=== PATIENT | female | born 1985 | race Caucasian/White ===

== ENCOUNTER 2017-04-05 21:59 | Inpatient (IN) | payer OTHER ==
[2017-04-05] MEDS ORDERED: METHYLERGONOVINE 0.2 MG/ML 1 ML AMP IM PRN (22:12)
[2017-04-05] MEDS ORDERED: OXYTOCIN 10 UNIT/ML 1 ML VIAL IM PRN (22:12)
[2017-04-05] MEDS ORDERED: PENICILLIN G POTASSIUM (BULK) 5,000,000 UNIT in DEXTROSE 5% IN WATER 100 ML IV STA ×2 (22:12)
[2017-04-05] MEDS ORDERED: LIDOCAINE 1% (PF) 10 MG/ML (30 ML SDV) SQ PRN (22:12)
[2017-04-05] MEDS ORDERED: TERBUTALINE 1 MG/ML VIAL SQ PRN (22:12)
[2017-04-05] MEDS ORDERED: CARBOPROST TROMETHAMINE 250 MCG/ML 1 ML AMP IM PRN (22:12)
[2017-04-05] MEDS: LACTATED RINGERS 1,000 ML IV SCH (22:24)
[2017-04-05 22:43] LABS: Basophils % (A) 0 %; CH 26.1; CHCM 34.1; Eosinophils # (A) 0.1 k/uL (0-0.7); Eosinophils % (A) 1 %; HCT 32.4 % (34.0-46.0); HDW 3.67; HGB 11.3 gm/dL (11.4-16.0); Luc # (Auto) 0.18; Luc % (Auto) 2; Lymphocytes # (A) 2.1 k/uL (1.0-4.8); Lymphocytes % (A) 25 %; MCH 26.8 pg (25.0-35.0); MCHC 34.9 g/dL (31.0-37.0); Mean Platelet Volume 9.5; Microcytosis Slight; Monocytes # (A) 0.4 k/uL (0-1.0); Monocytes % (A) 5 %; Neutrophils # (A) 5.7 k/uL (1.3-7.7); Neutrophils % (A) 67 %; Poikilocytosis Slight; RBC 4.21 m/uL (3.80-5.40); RDW 15.2 % (11.5-15.5); WBC 8.5 k/uL (3.8-10.6); WBC (Perox) 8.57
[2017-04-05 23:11] VITALS: RESP 16; BMI 31.3
[2017-04-05] MEDS ORDERED: fentaNYL (PF) 50 MCG/ML 5 ML AMP ONE (23:25)
[2017-04-05] MEDS ORDERED: BUPIVACAINE (PF) 0.25% 30 ML VIAL ONE (23:25)
[2017-04-05] MEDS ORDERED: SODIUM CHLORIDE 0.9% 100 ML BAG ONE (23:25)
[2017-04-06] MEDS: LACTATED RINGERS 1,000 ML IV SCH (00:10)
[2017-04-06] MEDS ORDERED: PENICILLIN G POTASSIUM (BULK) 2,500,000 UNIT in DEXTROSE 5% IN WATER 100 ML IV SCH ×2 (03:00)
--- NOTE | 2017-04-06 03:40 | P.HPOB ---
History of Present Illness H&P Date: 04/06/17 Chief Complaint: Strong regular uterine contractions This is a 32-year-old white female 5 para 20-2 EDC 04/11/2017 at 39 weeks gestation. Patient presented with strong regular uterine contractions. Fetus has been active throughout the . She denied fluid leakage or vaginal bleeding. Past medical history is significant for ovarian cysts. Past surgical history colposcopy and voluntary termination of 2 Current medications vitamins daily. ALLERGIES none known. Family history significant for celiac disease, emphysema, type 1 diabetes, hypertension, hypothyroidism, leukemia, lung cancer and rheumatoid arthritis. Social history patient is single, she denies alcohol drug use or tobacco smoking.. Past obstetric history blood type is B+, rubella status immune. Group B strep cultures positive. Hepatitis B surface antigen, HIV testing, VDRL testing, urine culture, Pap smear all negative. One-hour Glucola 142, 3 hour GTT within normal limits. On exam this is a pleasant white female, 5 foot 3 inches, 177 pounds, initial blood pressure 138/85. Vital signs are stable and patient is otherwise afebrile. The general physical exam is within normal limits. Cervix was 4 cm dilated on admission, vertex presentation, 90% effaced, -2 station. heart tones consistent with reactive NST. Impression: 39 week intrauterine , active spontaneous labor, positive B strep cultures. Plan: Penicillin G prophylaxis will be instituted now. Epidural may be placed at patient's wishes. Close maternal and surveillance. Anticipate normal spontaneous vaginal delivery. Review of Systems Negative except as in HPI Past Medical History Past Medical History: No Reported History History of Any Multi-Drug Resistant Organisms: None Reported Additional Past Surgical History / Comment(s): colposcopy 2008 VTOP 2004, 2005 Past Anesthesia/Blood Transfusion Reactions: No Reported Reaction Past Psychological History: No Psychological Hx Reported Smoking Status: Former smoker Past Alcohol Use History: Occasional Past Drug Use History: None Reported - Past Family History Mother Family Medical History: Rheumatoid Arthritis (RA), Thyroid Disorder Additional Family Medical History / Comment(s): celiac-mother hypertension- father type1 diabetes-sister Medications and Allergies Home Medications Medication Instructions Recorded Confirmed Type Pnv,Calcium 72/Iron/Folic Acid 1 tab PO DAILY 03/23/17 04/05/17 History [ Plus Tablet] Allergies Allergy/AdvReac Type Severity Reaction Status Date / Time No Known Allergies Allergy Verified 03/23/17 09:46 Exam - Vital Signs Vital signs: Vital Signs Temp Pulse Resp BP Pulse Ox 04/05/17 22:10 98.4 F 71 16 138/85 98 Intake and Output 04/05/17 04/05/17 04/06/17 14:59 22:59 06:59 Other: Weight 80.286 kg Patient Weight 04/06/17 06:59 Weight 80.286 kg See dictation please under HPI Results Result Diagrams: 04/05/17 22:22 Abnormal Lab Results - Last 24 Hours (Table) 04/05/17 Range/Units 22:22 Hgb 11.3 L (11.4-16.0) gm/dL Hct 32.4 L (34.0-46.0) % MCV 77.0 L (80.0-100.0) fL Assessment and Plan Plan: Penicillin G per hospital protocol. Close maternal and surveillance. Anticipate normal spontaneous vaginal delivery. Time with Patient: Less than 30
[2017-04-06] MEDS ORDERED: LANOLIN CREAM 5 GM TUBE TOPICAL PRN (03:42)
[2017-04-06] MEDS ORDERED: SIMETHICONE 80 MG CHEWABLE PO PRN (03:42)
[2017-04-06] MEDS ORDERED: IBUPROFEN 600 MG TAB PO PRN (03:42)
[2017-04-06] MEDS ORDERED: HYDROCORTISONE 2.5% RECTAL CREAM 30 GM TUBE RECTAL PRN (03:42)
[2017-04-06] MEDS ORDERED: diphenhydrAMINE 50 MG/ML 1 ML VIAL IVP PRN ×2 (03:42)
[2017-04-06] MEDS ORDERED: BENZOCAINE/MENTHOL SPRAY 1 GM/SPRAY AEROSOL TOPICAL PRN (03:42)
[2017-04-06] MEDS ORDERED: diphenhydrAMINE 25 MG CAP PO PRN (03:42)
[2017-04-06] MEDS ORDERED: ZOLPIDEM 5 MG TAB PO PRN (03:42)
[2017-04-06] MEDS ORDERED: diphenhydrAMINE ELIXIR 25 MG/10 ML CUP PO PRN (03:42)
[2017-04-06] MEDS ORDERED: ACETAMINOPHEN TAB 325 MG TAB PO PRN (03:42)
[2017-04-06] MEDS ORDERED: WITCH HAZEL 1 EACH MED..PAD TOPICAL PRN (03:42)
[2017-04-06] MEDS ORDERED: diphenhydrAMINE 50 MG CAP PO PRN (03:42)
--- NOTE | 2017-04-06 03:42 | P.PROBDLV ---
Vaginal Delivery Note - . Vaginal Delivery Note: This is a 32-year-old white female 5 para 20-2 EDC 04/11/2017 at 39 weeks gestation. Patient presented with strong regular uterine contractions in spontaneous active labor. Fetus is been active throughout the . is remarkable for positive group B strep cultures. Please see my dictated history and physical for details. Patient was admitted and penicillin G was given. She became uncomfortable and requested epidural, this was placed without difficulty per the anesthesia staff. Patient progressed well through the first stage of labor was judged to be completely dilated at 0316 hours. Perineal body was prepped and draped in the usual sterile fashion. With excellent maternal expulsive efforts the head delivered occiput anterior and she restituted accordingly. The right or anterior shoulder was gently and easily delivered from underneath the pubic symphysis at which time the oropharynx, nasopharynx and external nares were bulb suctioned on the perineal body. Patient was officially delivered of a liveborn female at 0318 hours. Umbilical cord was doubly clamped and ligated, she was handed to waiting nurses for evaluation where scores of 9 and 9 at one and 5 minutes respectively were given. The perineal body was then redraped. Inspection of the cervix, vagina, perineum , periurethral, and perirectal areas revealed no lacerations and no defects. Fundus is firm and in the midline, symmetric and 18 week size upon completion of delivery. All sponge needle and enhancement counts are correct. weighed 7 lbs. 9 oz. or 3430 g. Patient and her family are allowed to begin the bonding experience in the LDR.
[2017-04-06] MEDS ORDERED: OXYTOCIN 20 UNITS/1000 ML NS 1,000 ML IV SCH (04:30)
[2017-04-06] MEDS: SENNOSIDES-DOCUSATE SODIUM 1 EACH TAB PO SCH ×2 (08:28→20:39)
[2017-04-06] MEDS: Acetaminophen-Codeine 300-30mg TAB PO PRN (20:48)
[2017-04-07] MEDS: Acetaminophen-Codeine 300-30mg TAB PO PRN (06:40)
--- NOTE | 2017-04-07 07:25 | P.DS ---
Providers Date of admission: 04/05/17 21:59 Expected date of discharge: 04/07/17 (This is a 32-year-old white female 5 para 2021) Attending physician: Pili Romero Primary care physician: Stated None Hospital Course: This is a 32-year-old white female 5 para 20-2 EDC 04/11/2017 at 39 weeks gestation. Patient presented with spontaneous amniorrhexis in active labor. was remarkable for positive group B strep cultures, rubella status immune, blood type B positive. Please see my dictated history and physical for details. Fluid was noted to be clear and labor spontaneously progressed. Epidural was placed per her request. She went on to deliver swiftly a liveborn female infant with scores of 9 and 9 respectively. There were no perineal lacerations noted. Estimated blood loss 350 mL's. Infant weighed 7 lbs. 9 oz. or 3430 g. Please see my dictated delivery note for details. This morning the patient is doing well. She is voiding, ambulating and passing flatus without difficulty. Vital signs are stable and she is afebrile. Perineal body is clean and dry. Fundus is firm and in the midline, symmetric and 18 week size. Breasts are not engorged. is doing well. Patient is therefore being discharged home this morning in very good condition. She will follow-up with me in the office in 6 weeks. I have reminded her no intercourse, tampons or douching. She will use [id number] ibuprofen products as needed for pain. I have asked her to call with any fevers shakes or chills, foul smelling or copious lochia, with the passage of large blood clots, with any pain not alleviated by [id number]-[id number] products, or indeed with any concerns. We have given her prescription for a double electric breast pump to be used as needed. will follow-up with corporate paralegal as recommended. Patient Condition at Discharge: Good Plan - Discharge Summary New Discharge Prescriptions: No Action Pnv,Calcium 72/Iron/Folic Acid [ Plus Tablet] 1 tab PO DAILY Discharge Medication List Pnv,Calcium 72/Iron/Folic Acid [ Plus Tablet] 1 tab PO DAILY 03/23/17 [ History] Follow up Appointment(s)/Referral(s): Pili Romero MD [STAFF PHYSICIAN] - 6 Weeks Discharge Disposition: HOME SELF-CARE
[2017-04-07] MEDS: SENNOSIDES-DOCUSATE SODIUM 1 EACH TAB PO SCH (08:42)
[2017-04-07 12:19] VITALS: BP 126/77; PULSE 83; TEMP 98.2
== END 2017-04-07 14:15 | disposition home or self-care (01) | DRG 775 ==
LOC: 4FBP 21:59
PROVIDERS: ADMIT Obstetrics & Gynecology; ATTEND Obstetrics & Gynecology
PROC: 10E0XZZ Delivery of Products of Conception, External Approach (ICD-10-PCS; principal; 2017-04-06)
PROC: 3E0R3CZ (ICD-10-PCS; principal; 2017-04-06)
PROC: 00HU33Z Insertion of Infusion Device into Spinal Canal, Percutaneous Approach (ICD-10-PCS; principal; 2017-04-06)
DX: O75.89 Other specified complications of labor and delivery (principal); O99.824 Streptococcus B carrier state complicating childbirth; Z87.891 Personal history of nicotine dependence; Z37.0 Single live birth; Z3A.39 39 weeks gestation of pregnancy
CPT/HCPCS: 85025; 88307

== ENCOUNTER 2018-11-14 11:32 | Inpatient (IN) | payer OTHER ==
--- NOTE | 2018-11-14 12:04 | P.HPOB ---
History of Present Illness H&P Date: 11/14/18 This is a 33-year-old white female 6 para 2123 EDC 11/22/2018 at 38-5/7 weeks' gestation. Patient presents today with a history of leaking fluid since 6:30 this morning, moderate uterine contractions to follow. Fetus is been active throughout the . She denies vaginal bleeding or any other issues. Past medical history is significant for ovarian cysts. Past surgical history colposcopy, voluntary terminations 2. Current medications vitamins. ALLERGIES none known. Family history significant for hypertension, diabetes, lung cancer, celiac disease, Crohn's disease, leukemia, rheumatoid arthritis, emphysema. Reproductive history is significant for normal spontaneous vaginal deliveries 3, all healthy and unremarkable, 1 at 36 weeks' gestation. Social history is significant for one half pack per day tobacco smoker in the past, quit with . Patient is , her 's name is Graham. She denies alcohol or drug use. history is significant for blood type B+, rubella status immune. VDRL testing, urine culture, hepatitis B surface antigen, gonorrhea and chlamydia cultures all negative. One-hour Glucola 169, 3 hour GTT within normal limits area group B strep cultures negative. On exam this is a pleasant white female who is 5 foot 2.25 inches, approximately 200 pounds, temperature 98.1, respirations 16, pulse 82, blood pressure 141/86. The general physical exam is within normal limits. The cervix is 8 cm dilated, vertex presentation, 100% effaced, -1 station. There is a small fore bag that is ruptured for clear fluid. heart rate is consistent with reactive NST with a baseline of 120 to 130s. Impression: 38-5/7 weeks intrauterine , active spontaneous labor. All signs reassuring. Plan: Close maternal and surveillance. Consider option of epidural after IV is running and labs were drawn and patient is fully admitted. Anticipate normal spontaneous vaginal delivery. Review of Systems Constitutional: Reports as per HPI Past Medical History Past Medical History: No Reported History History of Any Multi-Drug Resistant Organisms: None Reported Additional Past Surgical History / Comment(s): colposcopy 2008 VTOP 2005,2006 Past Anesthesia/Blood Transfusion Reactions: No Reported Reaction Past Psychological History: No Psychological Hx Reported Smoking Status: Former smoker Past Alcohol Use History: Occasional Past Drug Use History: None Reported - Past Family History Mother Family Medical History: Rheumatoid Arthritis (RA), Thyroid Disorder Additional Family Medical History / Comment(s): celiac-mother hypertension- father type1 diabetes-sister Medications and Allergies Home Medications Medication Instructions Recorded Confirmed Type Pnv,Calcium 72/Iron/Folic Acid 1 tab PO DAILY 03/23/17 04/05/17 History [ Plus Tablet] Allergies Allergy/AdvReac Type Severity Reaction Status Date / Time No Known Allergies Allergy Verified 03/23/17 09:46 Exam See dictation under HPI please Assessment and Plan Assessment: 38-5/7 weeks intrauterine , active spontaneous labor. All signs reassuring. Plan: Close maternal and surveillance. Anticipate normal spontaneous vaginal delivery. Time with Patient: Less than 30
[2018-11-14] MEDS ORDERED: CARBOPROST TROMETHAMINE 250 MCG/ML 1 ML AMP IM PRN (12:09)
[2018-11-14] MEDS ORDERED: TERBUTALINE 1 MG/ML VIAL SQ PRN (12:09)
[2018-11-14] MEDS ORDERED: OXYTOCIN 10 UNIT/ML 1 ML VIAL IM PRN (12:09)
[2018-11-14] MEDS ORDERED: METHYLERGONOVINE 0.2 MG/ML 1 ML AMP IM PRN (12:09)
[2018-11-14] MEDS ORDERED: LIDOCAINE 0.5% (PF) 5 MG/ML (50 ML SDV) SQ PRN (12:09)
[2018-11-14 12:18] VITALS: BMI 35.6
[2018-11-14 12:29] LABS: Basophils % (A) 0 %; Eosinophils # (A) 0.2 k/uL (0-0.7); Eosinophils % (A) 2 %; HCT 37.8 % (34.0-46.0); HGB 12.1 gm/dL (11.4-16.0); Hypochromasia Slight; Lymphocytes % (A) 17 %; MCH 24.3 pg (25.0-35.0); MCV 75.8 fL (80.0-100.0); Microcytosis Slight; Monocytes # (A) 0.4 k/uL (0-1.0); Monocytes % (A) 4 %; Neutrophils # (A) 8.5 k/uL (1.3-7.7); Neutrophils % (A) 74 %; Platelet Count 233 k/uL (150-450); Poikilocytosis Slight; RBC 4.98 m/uL (3.80-5.40); RDW 15.1 % (11.5-15.5); WBC 11.4 k/uL (3.8-10.6)
[2018-11-14] MEDS ORDERED: SIMETHICONE 80 MG CHEWABLE PO PRN (12:50)
[2018-11-14] MEDS ORDERED: LANOLIN CREAM 5 GM TUBE TOPICAL PRN (12:50)
[2018-11-14] MEDS ORDERED: BENZOCAINE/MENTHOL SPRAY 1 GM/SPRAY AEROSOL TOPICAL PRN (12:50)
[2018-11-14] MEDS ORDERED: ZOLPIDEM 5 MG TAB PO PRN (12:50)
[2018-11-14] MEDS ORDERED: diphenhydrAMINE 50 MG/ML 1 ML VIAL IVP PRN ×2 (12:50)
[2018-11-14] MEDS ORDERED: HYDROCORTISONE 2.5% RECTAL CREAM 30 GM TUBE RECTAL PRN (12:50)
[2018-11-14] MEDS ORDERED: WITCH HAZEL 1 EACH MED..PAD TOPICAL PRN (12:50)
[2018-11-14] MEDS ORDERED: diphenhydrAMINE 25 MG CAP PO PRN (12:50)
[2018-11-14] MEDS ORDERED: diphenhydrAMINE 50 MG CAP PO PRN (12:50)
--- NOTE | 2018-11-14 12:50 | P.PROBDLV ---
Vaginal Delivery Note - . Vaginal Delivery Note: This is a 33-year-old white female 6 para 2123 EDC 11/22/2018 at 38-5/7 weeks' gestation. Patient presented with spontaneous amniorrhexis which occurred at home, clear fluid, with uterine contractions to follow of moderate to severe intensity. Fetus is been active throughout the . She denies vaginal bleeding or other issues. Please see dictated history and physical for details. On admission she was 8 cm dilated, 100% effaced, -1 to -2 station, vertex presentation. 4 bag is ruptured for clear fluid. Patient is admitted. Analgesic options are discussed. Very quickly the patient became completely dilated at 1235 hours. Perineal body was prepped and draped in the usual sterile fashion. With excellent maternal expulsive efforts the infant's head delivered occiput anterior and restituted accordingly. There was a nuchal cord 1 that was reduced on the perineal body. The right or anterior shoulder was delivered gently. The oropharynx, nasopharynx, and external nares were all bulb suctioned on the perineal body. Patient was officially delivered of a liveborn female at 1236 hours. Umbilical cord was doubly clamped and ligated, she was handed to waiting nurses for evaluation where scores of 9 and 9 at one and 5 minutes respectively were given. Placenta delivered spontaneously, it was inspected and noted to be intact with trivascular cord at 1240 hours. Uterus is now massaged. Inspection of the cervix, vagina, perineum, periurethral, and perirectal areas revealed no lacerations and no defects. Fundus is firm and in the midline, symmetric and 18 week size. All sponge needle and enhancement counts are correct at the end of the procedure. Patient and her family are allowed to begin the bonding experience in the LDR.
[2018-11-14] MEDS ORDERED: OXYTOCIN 20 UNITS/1000 ML NS 1,000 ML IV SCH (13:00)
[2018-11-14] MEDS: ACETAMINOPHEN TAB 325 MG TAB PO PRN ×2 (14:08→18:30)
[2018-11-14] MEDS: IBUPROFEN 600 MG TAB PO PRN ×2 (14:09→20:26)
[2018-11-14] MEDS: LACTATED RINGERS 1,000 ML IV SCH (14:10)
[2018-11-15] MEDS: SENNOSIDES-DOCUSATE SODIUM 1 EACH TAB PO SCH ×2 (00:06→08:20)
[2018-11-15] MEDS: LACTATED RINGERS 1,000 ML IV SCH (00:07)
[2018-11-15 00:30] VITALS: PULSE 81
--- NOTE | 2018-11-15 07:55 | P.DS ---
Providers Date of admission: 11/14/18 11:52 Expected date of discharge: 11/15/18 Attending physician: Pili Romero Primary care physician: Stated None Hospital Course: This is a 33-year-old white female 6 para 2123 EDC 11/22/2018 38-5/7 weeks' gestation. Patient presented in active spontaneous labor. was unremarkable, group B strep cultures negative, rubella status immune, blood type B positive. Please see my dictated history and physical for details. Artificial amniorrhexis revealed clear fluid. Labor progressed rapidly. Patient went on to deliver vaginally a liveborn female infant with scores of 9 and 9 at one and 5 minutes respectively. There were no perineal lacerations or defects, no suturing necessary. Estimated blood loss 200 mL's. Please see dictated delivery note for details. weighed 7 lbs. 5 oz. 3334 g. This morning the patient is doing well. She is voiding, ambulating and passing flatus without difficulty, vital signs are stable and she is afebrile. Fundus is firm and in the midline, symmetric and 18 week size. Extremities are negative, breasts are not engorged. Breast-feeding is going well, prescription for breast pump has been provided. I've reviewed with the patient options for contraception and we will discuss this further in the office. She is reminded no intercourse, tampons or douching. She will use [id number] Advil, Aleve or Motrin products as needed for pain. She will call with any fevers shakes or chills, foul smelling or copious lochia, with the passage of large blood clots, with any pain not alleviated by gtdf-zws-hipinvx products, or indeed with any concerns. will follow-up with manager behavioral as recommended. Patient Condition at Discharge: Good Plan - Discharge Summary Discharge Rx Participant: No New Discharge Prescriptions: No Action Pnv,Calcium 72/Iron/Folic Acid [ Plus Tablet] 1 tab PO DAILY Discharge Medication List Pnv,Calcium 72/Iron/Folic Acid [ Plus Tablet] 1 tab PO DAILY 03/23/17 [History] Follow up Appointment(s)/Referral(s): Pili Romero MD [STAFF PHYSICIAN] - 6 Weeks Discharge Disposition: HOME SELF-CARE
[2018-11-15 09:01] VITALS: BP 129/80; RESP 18; TEMP 97.7
== END 2018-11-15 14:00 | disposition home or self-care (01) | DRG 807 ==
LOC: FBPOP 11:32 → 4FBP 11:52
PROVIDERS: ADMIT Obstetrics & Gynecology; ATTEND Obstetrics & Gynecology
PROC: 10E0XZZ Delivery of Products of Conception, External Approach (ICD-10-PCS; principal; 2018-11-14)
DX: O69.81X0 Labor and delivery complicated by cord around neck, without compression, not applicable or unspecified (principal); Z37.0 Single live birth; O34.80 Maternal care for other abnormalities of pelvic organs, unspecified trimester; N83.209 Unspecified ovarian cyst, unspecified side; Z3A.38 38 weeks gestation of pregnancy; Z87.891 Personal history of nicotine dependence; Z80.1 Family history of malignant neoplasm of trachea, bronchus and lung; Z80.6 Family history of leukemia; Z82.49 Family history of ischemic heart disease and other diseases of the circulatory system; Z82.5 Family history of asthma and other chronic lower respiratory diseases; Z83.3 Family history of diabetes mellitus; Z83.79 Family history of other diseases of the digestive system; Z82.61 Family history of arthritis
CPT/HCPCS: 85025; 86850; 86900; 86901

== ENCOUNTER → 2019-02-23 | Outpatient (CLI) | payer OTHER ==
[2019-02-23 13:08] LABS: Basophils # (A) 0.1 k/uL (0-0.2); Basophils % (A) 1 %; Eosinophils # (A) 0.3 k/uL (0-0.7); Eosinophils % (A) 4 %; HCT 43.1 % (34.0-46.0); HGB 14.2 gm/dL (11.4-16.0); Lymphocytes # (A) 2.3 k/uL (1.0-4.8); Lymphocytes % (A) 36 %; MCH 27.2 pg (25.0-35.0); MCV 82.7 fL (80.0-100.0); Mean Platelet Volume 7.6; Monocytes # (A) 0.2 k/uL (0-1.0); Monocytes % (A) 3 %; Neutrophils # (A) 3.4 k/uL (1.3-7.7); Neutrophils % (A) 54 %; Platelet Count 274 k/uL (150-450); RBC 5.21 m/uL (3.80-5.40); RDW 15.3 % (11.5-15.5); WBC 6.3 k/uL (3.8-10.6)
[2019-02-23 18:44] LABS: African American GFR (CKD) 133.8 (60.0-200.0); Anion Gap 7.9 mmol/L (4.00-12.00); Carbon Dioxide 25.1 mmol/L (21.6-31.8); Potassium 4.2 mmol/L (3.5-5.5)
== END | disposition home or self-care (01) ==
LOC: LABWHC1 12:15
PROVIDERS: ATTEND Obstetrics & Gynecology
DX: Z01.812 Encounter for preprocedural laboratory examination (principal); N83.291 Other ovarian cyst, right side
CPT/HCPCS: 36415; 80051; 82565; 82947; 84520; 85025; 87086

== ENCOUNTER 2019-02-27 07:31 | Inpatient (IN) | payer OTHER ==
[~2019-02-27 07:31] MED LIST: DEXAMETHASONE SOD PHOSPHATE 10 MG/ML 1 ML VIAL IV ONE; LIDOCAINE 1% 20 ML VIAL (10MG/ML) FOR IV START INTRADERMA PRN; ONDANSETRON 4 MG/2 ML VIAL IVP ONE; ONDANSETRON 4 MG/2 ML VIAL IVP PRN; SCOPOLAMINE 1.5MG/72HR PATCH TRANSDERM ONE
[2019-02-27] MEDS: LACTATED RINGERS 1,000 ML IV SCH (08:15)
[2019-02-27] MEDS ORDERED: MIDAZOLAM PF (FBP) 2 MG/2 ML VIAL IVP ONE (08:46)
[2019-02-27] MEDS ORDERED: diphenhydrAMINE 50 MG/ML 1 ML VIAL IVP PRN ×2 (08:53→09:56)
[2019-02-27] MEDS ORDERED: NALOXONE 0.4 MG/ML 1 ML VIAL IV PRN (08:53)
[2019-02-27] MEDS ORDERED: MORPHINE SULFATE 2 MG/ML SYRINGE IVP PRN (08:53)
[2019-02-27] MEDS ORDERED: fentaNYL (PF) 50 MCG/ML 2 ML AMP ONE (09:05)
[2019-02-27] MEDS ORDERED: PROPOFOL 10 MG/ML 20 ML VIAL IV ONE (09:05)
[2019-02-27] MEDS ORDERED: GLYCOPYRROLATE 0.2 MG/ML 2 ML VIAL ONE (09:05)
[2019-02-27] MEDS ORDERED: MORPHINE SULFATE (PF) 0.3 MG/0.3 ML SYR ONE (09:05)
[2019-02-27] MEDS ORDERED: NEOSTIGMINE 1 MG/ML 10 ML VIAL ONE (09:05)
[2019-02-27] MEDS ORDERED: LIDOCAINE 1% INJ 10MG/ML (20 ML MDV) ONE (09:05)
[2019-02-27] MEDS ORDERED: SUCCINYLCHOLINE CHLORIDE 100 MG/5 ML SYR IV ONE (09:05)
[2019-02-27] MEDS ORDERED: KETAMINE 10 MG/ML 20 ML VIAL ONE (09:05)
[2019-02-27] MEDS ORDERED: ROCURONIUM BROMIDE 10 MG/ML 10 ML VIAL IV ONE (09:05)
[2019-02-27] MEDS ORDERED: MIDAZOLAM 2 MG/2 ML VIAL ONE (09:05)
[2019-02-27] MEDS ORDERED: CELLULOSE,OXIDIZED 1 EACH EACH MISCELLANE ONE (09:16)
[2019-02-27] MEDS ORDERED: METOCLOPRAMIDE 5 MG/ML 2 ML VIAL IVP PRN (09:56)
[2019-02-27] MEDS ORDERED: ONDANSETRON 4 MG/2 ML VIAL IVP PRN (09:56)
[2019-02-27] MEDS ORDERED: SIMETHICONE 80 MG CHEWABLE PO PRN (09:56)
[2019-02-27] MEDS ORDERED: ZOLPIDEM 5 MG TAB PO PRN (09:56)
[2019-02-27] MEDS ORDERED: KETOROLAC 30 MG/ML 1 ML VIAL IVP PRN (09:56)
--- NOTE | 2019-02-27 09:56 | P.OP ---
Date of Procedure: 02/27/19 Preoperative Diagnosis: Complex 9 cm right ovarian mass Postoperative Diagnosis: Same, normal-appearing left tube and ovary Procedure(s) Performed: Exploratory laparotomy, right ovarian cystectomy, right salpingectomy. Anesthesia: KELLYA Surgeon: Pili Romero Learning Administrator #1: Colette Ureña Estimated Blood Loss (ml): 20 IV fluids (ml): 600 Pathology: other (Right fallopian tube and intact right ovarian mass) Condition: stable Disposition: PACU Operative Findings: Normal-appearing left tube and ovary. No evidence of pelvic endometriosis. Normal-appearing uterus. Right fallopian tube attenuated and stretched over the surface of the right ovarian mass. Description of Procedure: Patient is brought to the operating suite where a spinal with Duramorph was placed, along with general anesthetic. The abdomen is prepped and draped in usual sterile fashion. The appropriate timeout is performed to assure proper patient and procedure identification. Antibiotics are given. Urine hCG is negative. A low transverse skin incision is made in the midline in this is carried down to the subcutaneous tissue. Fascia is isolated, scored, and extended bilaterally with curved Lee scissors. Peritoneum is next identified and incised, there is no bowel or bladder involvement. Gentle palpation, the right ovarian mass is identified and brought into the surgical field. A sterile sponges wrapped around its base. The right fallopian tube is noted to be attenuated and stretched over the entire surface of the 9 cm mass, it is unable to be surgically dissected. A Jose David clamp was therefore placed across the base of the right fallopian tube and the base of the ovarian mass, with care to preserve the majority of the right ovarian structure. The specimen is removed intact and sent to pathology for evaluation. 0 Vicryl sutures used across the Jose David clamp to close. The right fallopian tube is greatly preserved, it is wrapped gently with Interceed and placed back into the pelvis. The left fallopian tube and ovary are normal to inspection. The rest of the pelvis is clean and clear. No evidence of adhesions or endometriosis. Uterine surface is smooth and within normal limits to inspection. Hemostasis is excellent. The perineal muscle allowed to close by secondary intention. The fascia is closed in a running locking stitch of 0 Vicryl. Subcutaneous tissue is irrigated, it is clean and dry. Subcutaneous tissue is reapproximated with a running stitch of 3-0 Vicryl. 4-0 undyed Vicryl issues for final subcuticular closure. Steri-Strips and Mastisol are applied to the wound. Alcantara catheter is placed and urine appears clear. Approximately 100 mL of urine is noted. Patient is brought back to recovery room in excellent condition with stable vital signs including blood pressure 127/73, pulse 82.
[2019-02-27] MEDS ORDERED: ONDANSETRON 4 MG/2 ML VIAL IVP ONE (10:17)
[2019-02-27] MEDS ORDERED: LACTATED RINGERS 1,000 ML IV ONE ×2 (10:20)
[2019-02-27] MEDS: KETOROLAC 30 MG/ML 1 ML VIAL IVP SCH ×4 (10:31→22:03)
[2019-02-27] MEDS: HYDROmorphone 0.5 MG/0.5 ML SYRINGE IVP PRN ×3 (10:33→11:01)
[2019-02-27] MEDS ORDERED: MEPERIDINE 50 MG/ML SYRINGE IVP ONE (11:08)
[2019-02-27 14:12] VITALS: BMI 30.2
[2019-02-27] MEDS: SENNOSIDES-DOCUSATE SODIUM 1 EACH TAB PO SCH (20:18)
[2019-02-28] MEDS: LACTATED RINGERS 1,000 ML IV SCH (00:30)
[2019-02-28] MEDS: KETOROLAC 30 MG/ML 1 ML VIAL IVP SCH ×3 (04:29→17:02)
--- NOTE | 2019-02-28 06:56 | P.DS ---
Providers Date of admission: 02/27/19 07:31 Expected date of discharge: 02/28/19 Attending physician: Pili Romero Primary care physician: Stated None Hospital Course: This is a 33-year-old female who presented with a long-standing 9.1 cm right adnexal mass. [place] testing suggested benign pathology. After consultation patient elected removal of the mass. She is otherwise healthy, please see my dictated history and physical for details. Yesterday she underwent exploratory laparotomy, right salpingectomy and excision of the right adnexal mass. She did very well intraoperatively, the left tube and ovary as well as uterus all appeared normal to inspection. The mass had a benign appearance and morphology as well. Please see dictated operative note for details. This morning the patient has been up and ambulating. Alcantara catheter has been removed. Incision is clean and dry, intact, Steri-Strips applied. She has active bowel sounds. The abdomen is softly distended with no rebound or guarding. Extremities are negative. Her diet has just been advanced. We are changing to oral pain medication, and plan is for discharge home later today. Patient will follow-up with me in the office in 2 weeks. I have reminded her no intercourse, tampons or douching. She has discontinued her control pill and will remain off the control pill at this time. She will restart the next pack after the next menses begins. She will use Tylenol No. 3, one pill every 4-6 hours as needed for pain, and will add acetaminophen 500 mg with the Tylenol 3 for extra pain relief. I've asked her to call me with redness or drainage of the incision, with any pain not alleviated by tgsn-lot-jczxnay medications, or indeed with any difficulties or concerns. Pathology at this time is pending. Patient Condition at Discharge: Good Plan - Discharge Summary Discharge Rx Participant: Yes New Discharge Prescriptions: No Action Yajaira Control 1 tab PO DAILY@1230 Discharge Medication List Yajaira Control 1 tab PO DAILY@1230 02/23/19 [History] Follow up Appointment(s)/Referral(s): Pili Romero MD [STAFF PHYSICIAN] - 2 Weeks Discharge Disposition: HOME SELF-CARE
[2019-02-28] MEDS: Acetaminophen-Codeine 300-30mg TAB PO PRN ×3 (07:27→17:02)
[2019-02-28] MEDS: ACETAMINOPHEN TAB 500 MG TAB PO PRN ×3 (07:28→17:03)
--- NOTE | 2019-02-28 08:32 | P.PN ---
Progress Note - Text 02/28 718am 33-year-old female status post exploratory lap by Dr. Alessandro leroy. Patient had spinal Duramorph for postop pain control, she was seen this morning she has a VAS of 1 with no complains of nausea vomiting, she has pruritus should be subsiding soon.
[2019-02-28] MEDS ORDERED: ACETAMINOPHEN TAB 325 MG TAB PO PRN (09:58)
[2019-02-28] MEDS: SENNOSIDES-DOCUSATE SODIUM 1 EACH TAB PO SCH (10:58)
[2019-02-28 16:44] VITALS: RESP 18
[2019-02-28 18:23] VITALS: BP 110/68; PULSE 84; TEMP 98.5
== END 2019-02-28 18:24 | disposition home or self-care (01) | DRG 743 ==
LOC: 2ORMAIN 07:31 → 6PED 10:07
PROVIDERS: ADMIT Obstetrics & Gynecology; ATTEND Obstetrics & Gynecology
PROC: 0UB50ZZ Excision of Right Fallopian Tube, Open Approach (ICD-10-PCS; 2019-02-27)
PROC: 0UT00ZZ Resection of Right Ovary, Open Approach (ICD-10-PCS; principal; 2019-02-27 09:05)
DX: N83.9 Noninflammatory disorder of ovary, fallopian tube and broad ligament, unspecified (principal); L29.9 Pruritus, unspecified; Z79.3 Long term (current) use of hormonal contraceptives
CPT/HCPCS: 81025; 86850; 86900; 86901; 88307; 94760

== ENCOUNTER → 2020-10-16 | Outpatient (CLI) | payer BC ==
[2020-10-16 12:02] LABS: Basophils % (A) 1 %; Eosinophils # (A) 0.4 k/uL (0-0.7); Eosinophils % (A) 6 %; HCT 38.6 % (34.0-46.0); HGB 13.7 gm/dL (11.4-16.0); Lymphocytes # (A) 1.6 k/uL (1.0-4.8); Lymphocytes % (A) 24 %; MCH 30.7 pg (25.0-35.0); MCHC 35.5 g/dL (31.0-37.0); MCV 86.4 fL (80.0-100.0); Mean Platelet Volume 7.6; Monocytes # (A) 0.3 k/uL (0-1.0); Monocytes % (A) 5 %; Neutrophils # (A) 4.3 k/uL (1.3-7.7); Neutrophils % (A) 63 %; Platelet Count 229 k/uL (150-450); RBC 4.47 m/uL (3.80-5.40); WBC 6.8 k/uL (3.8-10.6)
[2020-10-16 12:17] LABS: African American GFR (CKD) >90 (>60 ml/min/1.73 sqM); Anion Gap 8 mmol/L; Blood Urea Nitrogen 18 mg/dL (7-17); Carbon Dioxide 24 mmol/L (22-30); Chloride 106 mmol/L (98-107); Glucose 96 mg/dL (74-99); Non-African American GFR(CKD) >90 (>60 ml/min/1.73 sqM); Potassium 4.5 mmol/L (3.5-5.1); Sodium 138 mmol/L (137-145)
== END | disposition home or self-care (01) ==
LOC: LABPAT 10:40
PROVIDERS: ATTEND Obstetrics & Gynecology
DX: Z01.818 Encounter for other preprocedural examination (principal); N94.10 Unspecified dyspareunia; N94.6 Dysmenorrhea, unspecified; N80.0 Endometriosis of uterus
CPT/HCPCS: 36415; 80051; 82565; 82947; 84520; 85025; 86850; 86900; 86901; 87086

== ENCOUNTER 2020-10-22 05:49 | Observation (INO) | payer BC, OTHER ==
[2020-10-15 11:52] VITALS: BMI 25.7
[~2020-10-22 05:49] MED LIST changes: -DEXAMETHASONE SOD PHOSPHATE 10 MG/ML 1 ML VIAL IV ONE; +DEXAMETHASONE SOD PHOSPHATE 4 MG/ML 1 ML VIAL IV ONE; +LIDOCAINE 1% (10MG/ML) FOR IV START INTRADERMA PRN; -LIDOCAINE 1% 20 ML VIAL (10MG/ML) FOR IV START INTRADERMA PRN; +MIDAZOLAM 2 MG/2 ML VIAL IV PRN; -ONDANSETRON 4 MG/2 ML VIAL IVP PRN; -SCOPOLAMINE 1.5MG/72HR PATCH TRANSDERM ONE
[2020-10-22] MEDS ORDERED: SCOPOLAMINE 1.5MG/72HR PATCH TRANSDERM ONE (06:16)
[2020-10-22] MEDS: LACTATED RINGERS 1,000 ML IV SCH ×3 (06:16→23:35)
[2020-10-22] MEDS ORDERED: fentaNYL (PF) 50 MCG/ML 2 ML AMP IVP ONE ×4 (06:39)
[2020-10-22] MEDS ORDERED: HYDROmorphone 0.5 MG/0.5 ML SYRINGE IVP PRN ×2 (07:00→08:57)
[2020-10-22] MEDS ORDERED: SUCCINYLCHOLINE CHLORIDE 100 MG/5 ML SYR IV ONE (07:20)
[2020-10-22] MEDS ORDERED: MIDAZOLAM 2 MG/2 ML VIAL ONE (07:20)
[2020-10-22] MEDS ORDERED: PROPOFOL 10 MG/ML 20 ML VIAL IV ONE (07:20)
[2020-10-22] MEDS ORDERED: MORPHINE SULFATE (PF) 0.3 MG/0.3 ML SYR ONE (07:20)
[2020-10-22] MEDS ORDERED: LIDOCAINE 1% INJ 10MG/ML (20 ML MDV) ONE (07:20)
[2020-10-22] MEDS ORDERED: fentaNYL (PF) 50 MCG/ML 2 ML AMP ONE (07:20)
--- NOTE | 2020-10-22 07:21 | P.ANPRN ---
Procedure Note - Anesthesia - Epidural/Spinal Spinal Time Out Performed: Yes Date of Procedure: 10/22/20 Procedure Start Time: 06:38 Procedure Stop Time: 06:44 Location of Patient: PreOp Indication: Requested by Surgeon Sedation Type: Sedate with meaningful contact maintained Preparation: Sterile Prep Position: Sitting Needle Guage: 25 Blood Aspirated: No Pain Paresthesia on Injection Noted: No Events: Uneventful and Well Tolerated (Fentanyle 25 Mcg plus Astramorph 300 mcg injected intrathecally)
[2020-10-22] MEDS ORDERED: VASOPRESSIN 20 UNIT/ML 1 ML VIAL SQ ONE (07:46)
[2020-10-22] MEDS ORDERED: LACTATED RINGERS 1,000 ML IV ONE (07:46)
[2020-10-22] MEDS ORDERED: BACITRACIN ZINC 500 UNIT/GM OINT 28.4 GM TUBE TOPICAL ONE (08:01)
[2020-10-22] MEDS ORDERED: diphenhydrAMINE 50 MG/ML 1 ML VIAL IVP ONE (08:40)
[2020-10-22] MEDS ORDERED: METOCLOPRAMIDE 5 MG/ML 2 ML VIAL IVP PRN (08:42)
[2020-10-22] MEDS ORDERED: ONDANSETRON 4 MG/2 ML VIAL IVP PRN ×2 (08:42→08:57)
[2020-10-22] MEDS ORDERED: diphenhydrAMINE 50 MG/ML 1 ML VIAL IVP PRN (08:42)
[2020-10-22] MEDS ORDERED: SIMETHICONE 80 MG CHEWABLE PO PRN (08:42)
--- NOTE | 2020-10-22 08:42 | P.OP ---
Date of Procedure: 10/22/20 (Severe dysmenorrhea, adenomyosis) Preoperative Diagnosis: Severe dysmenorrhea, adenomyosis Postoperative Diagnosis: Same, normal-appearing ovaries bilaterally Procedure(s) Performed: Vaginal hysterectomy Anesthesia: LAWSON Surgeon: Pili Romero Certified Personal Finance Counselor #1: Colette Ureña Estimated Blood Loss (ml): 100 IV fluids (ml): 600 Urine output (ml): 100 Pathology: other (Cervix and uterus) Condition: stable Disposition: PACU Operative Findings: Normal-appearing ovaries bilaterally, mild rectocele Description of Procedure: Patient is brought to the operating suite where a general anesthetic is administered without difficulty after the administration of spinal with Duramorph. She's placed in the dorsal lithotomy position. The cervix, vagina, perineal body and abdomen are all prepped and draped in usual sterile fashion. Antibiotics are given. Urine hCG is negative. The appropriate timeout is performed to assure proper patient and procedural identification. Bladder is dr ained for approximately 100 mL of clear yellow urine. Weighted speculum was placed into the vagina and the anterior lip of the cervix is grasped with a double-tooth tenaculum. The cervix is injected with dilute Pitressin solution, 10 mL total. A scalpel is used to incise the mucosa circumferentially with a V positioning at 6:00. A sponge rolled finger is used to sweep the mucosa from the underlying plane. At all times the mucosa is swept away to avoid bladder and/or ureteral injury. Peritoneum is entered at 6:00 with a Metzenbaum scissor and suture tied with 2-0 Vicryl held with a hemostat. Large billed speculum is then placed. The right uterosacral cardinal ligament complex is identified, clamped cut and suture ligated and held with a hemostat. Same is carried out contralaterally. Uterine vasculature is identified, clamped cut and suture ligated area 0 Vicryl is used for the entire remaining portion of the case. 2 additional pedicles are taken superior to the vessels. The uterus is then "walked out" posteriorly. Jose David clamps are used across the final pedicles and the cervix and uterus are removed and sent to pathology. 0 Vicryl suture is used in a Leland stitch to tie securely the remaining pedicles which are flashed, and then retied for excellent hemostasis. Ovaries are visualized with a sponge stick, normal, and left in situ per the patient's wishes. All pedicles are reinspected, clean and dry. Speculum is then changed to the shallow billed speculum. The 2-0 Vicryl suture at 6:00 is brought around in a pursestring fashion to close the peritoneum. Care is taken to protect the bowel and ureters. The uterosacral ligament stitches are brought across to incorporate the opposite ligament and vaginal mucosa. 3 additional [id number] sutures of 0 Vicryl are used to close the cuff securely. Alcantara catheter is placed. Urine is clear. Vagina is packed with one-inch iodophor gauze. All sponge needle and enhancement counts are correct. Patient is brought back to recovery room in very good condition with stable vital signs including a pulse of 72, blood pressure 103/48, 100% O2 saturation.
[2020-10-22] MEDS ORDERED: NALOXONE 0.4 MG/ML 1 ML VIAL IV PRN (08:57)
[2020-10-22] MEDS: KETOROLAC 15 MG/ML 1 ML VIAL IVP PRN ×2 (09:06→21:14)
[2020-10-23] MEDS: KETOROLAC 15 MG/ML 1 ML VIAL IVP PRN (04:38)
--- NOTE | 2020-10-23 07:13 | P.PN ---
Progress Note - Text Progress Note Date: 10/23/20 Postoperative day 1 status post vaginal hysterectomy under general anesthesia, and intrathecal morphine given for intraoperative/postoperative analgesia, patient doing well, there is no anesthesia related complications Patient had no headache, vital signs stable Assessment and plan = postop day 1 status hysterectomy, doing well there is no anesthesia related complication
--- NOTE | 2020-10-23 07:49 | P.DS ---
Providers Date of admission: 10/23/20 06:38 Expected date of discharge: 10/23/20 Attending physician: Pili Romero Primary care physician: [facility] Course: This is a 35-year-old white female who presented with symptomatic adenomyosis, dysmenorrhea and menorrhagia. After consultation she elected to proceed with vaginal hysterectomy. Please see dictated history and physical for details. Yesterday patient underwent vaginal hysterectomy. Ovaries were inspected and noted to be normal, left in situ per her wishes. She received a spinal with Duramorph with good relief. Vaginal packing and Alcantara catheter replaced. Plea se see dictated operative note for details. This morning the patient is doing very well. She is passing flatus, voiding, and ambulating. Pain is well tolerated. No vaginal bleeding noted. Vital s igns are stable and she has remained afebrile. Abdomen is soft and nontender. There is no CVA tenderness. She is judged to be in good condition for discharge home. She is reminded no intercourse, tampons or douching. She will use [id number] Advil or Aleve, or Motrin as needed for pain. She will call with any fevers shakes or chills, foul smelling or copious vaginal discharge, with the passage of large blood clots, with any pain not alleviated by [id number] products, or indeed with any concerns. Assessment: Doing well postoperative day #1 Patient Condition at Discharge: Good Plan - Discharge Summary Discharge Rx Participant: No New Discharge Prescriptions: No Action Ibuprofen [Motrin Ib] 600 mg PO Q8H PRN PRN Reason: Pain Acetaminophen [Tylenol] 325 mg PO Q4H PRN PRN Reason: Pain Discharge Medication List Acetaminophen [Tylenol] 325 mg PO Q4H PRN 10/15/20 [History] Ibuprofen [Motrin Ib] 600 mg PO Q8H PRN 10/15/20 [History] Follow up Appointment(s)/Referral(s): Pili Romero MD [STAFF PHYSICIAN] - 2 Weeks Patient Instructions/Handouts: *Surgery [facility] - Scopalamine Patch Instructions
[2020-10-23 08:32] VITALS: BP 107/74; PULSE 63; TEMP 98.6
[2020-10-23 11:06] VITALS: RESP 16
== END 2020-10-23 11:14 | disposition home or self-care (01) ==
LOC: OR 05:49 → 4FBP 08:20 → OR 10-23 06:38
PROVIDERS: ADMIT Obstetrics & Gynecology; ATTEND Obstetrics & Gynecology
DX: N94.6 Dysmenorrhea, unspecified (principal); N94.10 Unspecified dyspareunia; N92.0 Excessive and frequent menstruation with regular cycle; N81.6 Rectocele; N87.9 Dysplasia of cervix uteri, unspecified; N72 Inflammatory disease of cervix uteri; N73.6 Female pelvic peritoneal adhesions (postinfective); N83.8 Other noninflammatory disorders of ovary, fallopian tube and broad ligament; K21.9 Gastro-esophageal reflux disease without esophagitis; N80.0 Endometriosis of uterus; Z87.891 Personal history of nicotine dependence; Z90.79 Acquired absence of other genital organ(s); Z82.5 Family history of asthma and other chronic lower respiratory diseases
CPT/HCPCS: 81025; 88307; 58260; G0378; J2250; J1200; J1100; J0690; J2405; J2001; J2274; J3010; J1885 ×2; J0330; J2704; 86850; 86900; 86901